=== PATIENT | male | born 1950 | race Hispanic/Latino ===

== ENCOUNTER 2021-09-07 18:25 | Emergency (ER) | payer BC, MEDICARE, SELFPAY ==
--- NOTE | ~2021-09-07 | XR_ITS ---
EXAMINATION: XR finger 1st LT min 2V EXAM DATE: 09/07/2021 19:13 INDICATION: strain, twisted injury, swollen, proximal base . TECHNIQUE: Left 1st finger frontal, lateral and oblique projections obtained and reviewed. There i s no prior study for comparison. FINDINGS: There is severe 1st carpometacarpal, moderate interphalangeal and mild to moderate metacarp ophalangeal primary osteoarthritis. There are no acute fractures or dislocations identified. There i s no subcutaneous gas. The soft tissue is unremarkable. There are no radiopaque foreign bodies. 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 Reviewed, dictated and finalized at location G.
--- NOTE | 2021-09-07 18:51 | ED.UPPEXIN ---
HPI - Extremity Injury (Upper) General Chief Complaint: Extremity Injury, Upper Stated Complaint: Swollen Thumb Time Seen by Provider: 09/07/21 18:51 Source: patient Mode of arrival: ambulatory Limitations: no limitations History of Present Illness HPI narrative: Bridget Cardenas is a 71 yo male with no PMH who hit his left thumb at work via twisting it. Started to swell and hurts on both sides pain is most at the proximal joint Related Data Allergies Allergy/AdvReac Type Severity Reaction Status Date / Time No Known Allergies Allergy Verified 12/29/19 14:28 Review of Systems Review of Systems: CONSTITUTIONAL: Denies fever, chills, sweats. EYES: Denies visual changes, redness, discharge. ENT: Denies rhinorrhea, congestion, sore throat, otalgia. CARDIOVASCULAR: Denies chest pain, palpitations, edema. RESPIRATORY: Denies dyspnea, wheezing, cough GASTROINTESTINAL: Denies abdominal pain, nausea, vomiting, diarrhea. GENITOURINARY: Denies dysuria, hematuria, abnormal discharge SKIN: Denies rash or itching. NEUROLOGIC: Denies numbness, or focal weakness. PSYCHIATRIC: Denies anxiety or depression. Left thumb pain and swelling PMFSH Past Medical History Medical History REM sleep behavior disorder Family History Family History Mother Diabetes mellitus Myocardial infarction Social History Social History (Updated 09/07/21 @ 18:57 by Amy Calhoun CNP) Smoking packs per day: 0.25 Smoking cigarettes per day: 5.0 Smoking status: Current every day smoker Tobacco type: cigarettes Alcohol intake: current Alcohol use details: Beer only Comments At time of signature, I agree with nursing past medical, surgical, social and family history. There is no relevant family history pertinent to the presenting complaint. Exam Narrative: GENERAL: This is a well-nourished, well-developed patient, in mild distress. HEAD: normocephalic, atraumatic. EYES: Sclera clear/white. Vision is grossly intact. EARS: External ears normal, . Hearing grossly intact. NOSE: External nose normal without nasal discharge, nares without redness, no rhinorrhea. THROAT: Mucous membranes moist, NECK: Neck supple, CARDIOVASCULAR: Regular rate and rhythm without murmurs, gallops, or rubs. RESPIRATORY: Clear to auscultation. Breath sounds equal bilaterally.hi. GASTROINTESTINAL: Abdomen soft, SKIN: warm, intact with no suspicious lesions or rash, good texture and turgor. NEURO: awake, alert, and oriented to person, place and time. There were no obvious focal neurologic abnormalities. Steady gait EXTREMITIES: Normal range of motion. Left thumb pain and swelling difficulty with movement states when it is squeezed it hurts like the dickens BACK: Nontender without deformity Course Course Emergency Course: Patient hurt finger also on by twisting it in some fashion X-ray of left thumb shows no subcutaneous gas no soft tissue changes there is no acute fracture dislocation identified. 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 Placed in thumb splint and given ibuprofen and patient is to ice thumb Vital Signs Vital signs: Vital Signs Temperature 98.0 F 09/07/21 19:09 Pulse Rate 69 09/07/21 19:09 Respiratory Rate 16 09/07/21 19:09 Blood Pressure 130/80 09/07/21 19:09 Pulse Oximetry 98 09/07/21 19:09 Temperature 98.0 F 09/07/21 19:09 Pulse Rate 69 09/07/21 19:09 Respiratory Rate 16 09/07/21 19:09 Blood Pressure 130/80 09/07/21 19:09 Pulse Oximetry 98 09/07/21 19:09 MDM - Extremity Injury (Upper) Differential Diagnosis Differential diagnosis: Likely finger sprain, dislocation of finger, fracture of hand and other (Tendon injury) Critical Care Time Critical Care Time Critical Care Time: No Disch
[2021-09-07 19:09] VITALS: BP 130/80; PULSE 69; RESP 16; TEMP 36.7; O2SAT 98
== END 2021-09-07 19:49 | disposition home or self-care (01) ==
PROVIDERS: Emergency Provider Nurse Practitioner; PCP Family Medicine
DX: M19.242 Secondary osteoarthritis, left hand (principal); F17.210 Nicotine dependence, cigarettes, uncomplicated; G47.52 REM sleep behavior disorder
CPT/HCPCS: 29130; 73140; 99213; G0463

== ENCOUNTER 2022-08-25 22:13 | Emergency (ER) | payer MEDICARE, SELFPAY ==
--- NOTE | ~2022-08-25 | XR_ITS ---
EXAMINATION: XR chest 2V 08/25/2022 23:22 INDICATION: Intermittent dizziness PROCEDURE: 2 view chest COMPARISON: 11/01/2008 FINDINGS: The lungs are clear. The cardiomediastinal silhouette is within normal limits. There are no pleural effusions. There is no pneumothorax suspected. IMPRESSION: 1: NO ACUTE CARDIOPULMONARY DISEASE. Reviewed, dictated and finalized at location A.
--- NOTE | ~2022-08-25 | CT_ITS ---
EXAMINATION: CT BRAIN W/O DATE: 08/26/2022 02:34 INDICATION: Intermittent dizziness for 3 days. TECHNIQUE: Computed tomography (CT) of the head was performed without intravenous contrast. The dose- length product was 605.33 mGy-cm. Automated exposure control and iterative reconstruction technique w ere employed. COMPARISON: No prior studies for comparison. FINDINGS: Normal brain parenchymal volume for age. Normal valdovinos-white differentiation. There are scatt ered mild periventricular and subcortical white matter changes, most likely related to small vessel i schemic disease (microangiopathy). No acute intracranial hemorrhage, infarction, mass or mass effect. No ventriculomegaly or midline shift. Midline sagittal images demonstrate a normal corpus callosum, c raniovertebral junction and sella turcica. Basilar cisterns are patent. Paranasal sinuses and mastoids are pneumatized. No depressed skull fractures. IMPRESSION: 1. No acute intracranial abnormality. Reviewed, dictated and finalized at location A.
[2022-08-25 22:20] VITALS: BP 120/69; PULSE 75; RESP 17; TEMP 36.6; O2SAT 99
--- NOTE | 2022-08-25 23:10 | PC.NURSE ---
Patient taken to xray via w/c.
[2022-08-26] VITALS (21 sets, daily range): BP systolic 117–150; BP diastolic 67–81; PULSE 60–77; RESP 13–23; O2SAT 95–100
--- NOTE | 2022-08-26 00:39 | ECG_ITS ---
Measurements Intervals [place] Rate: 64 P: 51 [place]: 157 QRS: 58 QRSD: 93 T: 49 QT: 370 QTc: 383 Interpretive Statements SINUS RHYTHM NORMAL ECG NO PREVIOUS ECG AVAILABLE FOR COMPARISON Electronically Signed On 08-26-2022 8:14:29 CDT by Juan Ballesteros D.O.
--- NOTE | 2022-08-26 00:44 | ED.GENADULT ---
HPI - General Adult General Chief complaint: Dizziness Stated complaint: coughing, choked on food earlier Time Seen by Provider: 08/26/22 00:33 History of Present Illness HPI narrative: Patient is 72-year-old gentleman who presents the emergency department with chief complaint of dizziness. Patient reports that today he choked on a cookie and his helped clear him. The patient states that afterwards lightheaded and felt somewhat unsteady on his feet. Patient states the little better now that he is arrived in the emergency department the patient denies chest pain denies shortness of breath denies abdominal pain. Patient denies weakness in his arms or legs Related Data Home Medications Medication Instructions Recorded Confirmed No Home Medications 08/25/22 08/25/22 Allergies Allergy/AdvReac Type Severity Reaction Status Date / Time No Known Allergies Allergy Verified 08/25/22 22:23 Review of Systems Review of Systems: A 10 system review of systems was completed on the patient and is negative except for what is stated in the HPI. Nursing and ancillary documentation was reviewed. [facility] Past Medical History Medical History REM sleep behavior disorder Family History Family History Mother Diabetes mellitus Myocardial infarction Social History Social History Smoking packs per day: 0.25 Smoking cigarettes per day: 5.0 Smoking status: Current every day smoker Tobacco type: cigarettes Alcohol intake: current Alcohol use details: Beer only Exam Narrative: GENERAL: Well-appearing, well-nourished, and in no acute distress. HEAD: Normocephalic, atraumatic. EYES: PERRLA and EOMI. ENT: Nares clear, no rhinorrhea or epistaxis. Mucous membranes moist. NECK: Supple. CHEST: Clear to auscultation. No respiratory distress. HEART: Regular rate and rhythm. No murmur heard. Normal peripheral pulses. ABDOMEN: Soft, nontender, nondistended, normal active bowel sounds. EXTREMITIES: Normal range of motion. No edema. SKIN: Warm, dry, no rash. NEURO: No focal deficits. Alert and oriented x3. PSYCH: Normal mood and affect. Course Vital Signs Vital signs: Vital Signs Temperature 36.6 C 08/25/22 22:20 Pulse Rate 75 08/25/22 22:20 Respiratory Rate 17 08/25/22 22:20 Blood Pressure 120/69 08/25/22 22:20 Pulse Oximetry 99 08/25/22 22:20 Oxygen Delivery Room Air 08/25/22 22:20 Temperature 36.6 C 08/25/22 22:20 Pulse Rate 60 08/26/22 03:45 Respiratory Rate 14 08/26/22 03:45 Blood Pressure 117/68 08/26/22 02:15 Pulse Oximetry 96 08/26/22 03:45 Oxygen Delivery Room Air 08/25/22 22:20 Medical Decision Making Vital Signs Vital Signs: Vital Signs Temperature 36.6 C 08/25/22 22:20 Pulse Rate 75 08/25/22 22:20 Respiratory Rate 17 08/25/22 22:20 Blood Pressure 120/69 08/25/22 22:20 Pulse Oximetry 99 08/25/22 22:20 Oxygen Delivery Room Air 08/25/22 22:20 Temperature 36.6 C 08/25/22 22:20 Pulse Rate 60 08/26/22 03:45 Respiratory Rate 14 08/26/22 03:45 Blood Pressure 117/68 08/26/22 02:15 Pulse Oximetry 96 08/26/22 03:45 Oxygen Delivery Room Air 08/25/22 22:20 Lab Data Result diagrams: 08/26/22 01:07 08/26/22 01:07 Labs: Lab Results 08/26/22 08/26/22 08/26/22 Range/Units 01:07 01:07 01:07 WBC 6.3 (4.5-10.0) K/mm3 RBC 4.34 L (4.6-6.20) M/mm3 Hgb 13.2 L (14.0-18.0) g/dL Hct 39.8 L (42.0-52.0) % MCV 91.7 (80-100) fl MCH 30.4 (26-34) pg MCHC 33.2 (32-36) g/dl RDW 13.8 (11.5-14.5) % Plt Count 134 L (150-375) k/mm3 MPV 9.7 (7.4-10.4) fl Immature Gran % (Auto) 0.3 (0-0.5) % Neut % (Auto) 43.6 L (45.5-73.1) % Lymph % (Auto) 40.2 (18.
[2022-08-26] MEDS: SODIUM CHLORIDE 0.9% IV 1,000 ML 999 ML IV CONT (01:05)
[2022-08-26 01:15] LABS: Basophils Percent Auto 0.5 % (0.2-1.2); Eosinophils Absolute Auto 0.3 K/mm3 (0-0.3); Eosinophils Percent Auto 5.4 % (0-4.4); Hematocrit 39.8 % (42.0-52.0); Hemoglobin 13.2 g/dL (14.0-18.0); Immature Granulocyte Absolute 0.02 K/mm3 (0.00-0.031); Immature Granulocyte Percent A 0.3 % (0-0.5); Immature Platelet Fraction Pct 2.5 % (0.9-11.2); Lymphocytes Absolute Auto 2.54 K/mm3 (0.9-3.2); Lymphocytes Percent Auto 40.2 % (18.3-44.2); Mean Corpuscular HGB Conc 33.2 g/dl (32-36); Mean Corpuscular Hemoglobin 30.4 pg (26-34); Mean Corpuscular Volume 91.7 fl (80-100); Mean Platelet Volume 9.7 fl (7.4-10.4); Monocytes Absolute Auto 0.6 K/mm3 (0.1-0.6); Neutrophils Absolute Auto 2.8 K/mm3 (1.3-6.7); Neutrophils Percent Auto 43.6 % (45.5-73.1); Platelet Count Result 134 k/mm3 (150-375); Red Blood Count 4.34 M/mm3 (4.6-6.20); Red Cell Distribution Width 13.8 % (11.5-14.5); White Blood Count 6.3 K/mm3 (4.5-10.0)
[2022-08-26 01:22] LABS: Lactic Acid Reflex 0.6 mmol/L (0.7-2.0)
[2022-08-26 01:23] LABS: Alanine Aminotransferase 12 U/L (6-50); Albumin Level 3.8 g/dL (3.5-5.1); Alkaline Phosphatase 102 U/L (38-126); Anion Gap 9 mmol/L (8-16); Aspartate Amino Transferase 19 U/L (17-59); Bilirubin,Total 0.4 mg/dL (0.2-1.3); Blood Urea Nitrogen 18 mg/dL (9-20); Calcium 8.7 mg/dL (8.4-10.2); Carbon Dioxide 26 mmol/L (22-30); Chloride 103 mmol/L (98-107); Estimated Glomerular Filt Rate > 60; Glucose 94 mg/dL (65-110); Magnesium 1.9 mg/dL (1.6-2.3); Potassium 3.6 mmol/L (3.4-5.0); Sodium 138 mmol/L (137-145)
[2022-08-26 01:34] LABS: Troponin I < 0.012 ng/mL (0.000-0.034)
[2022-08-26 02:21] LABS: Appearance Urine Clear (Clear); Bilirubin Urine Negative (Negative); Blood Urine Trace-lysed (Negative); Color Urine Yellow (Yellow); Glucose Urine UA Negative (Negative); Ketones Urine Negative (Negative); Leukocyte Esterase Ur 3+ LEU/UL (Negative); Nitrate Urine Negative (Negative); Protein Urine Negative (Negative); Specific Grav Ur 1.015 (1.001-1.035); Urobilinogen Urine 0.2 mg/dL (<2.0); pH Urine 5.5 (5.0-9.0)
[2022-08-26 02:26] LABS: Bacteria Urine Trace /hpf; Mucus Urine Heavy /lpf; Squamous Epithelial Cell Urine Rare /hpf (Few); WBC Urine >75 /hpf
[2022-08-26 02:27] LABS: Add Urine Microscopic? YES
[2022-08-26 03:52] LABS: Troponin I 0.018 ng/mL (0.000-0.034)
--- NOTE | 2022-08-26 04:07 | PC.NURSE ---
Walked pt around nurse's station. Steady gait. Dr Redding notified.
== END 2022-08-26 04:19 | disposition home or self-care (01) ==
PROVIDERS: Emergency Provider Emergency Medicine; PCP Family Medicine
DX: R42 Dizziness and giddiness (principal); G47.52 REM sleep behavior disorder; F17.210 Nicotine dependence, cigarettes, uncomplicated; R82.998 Other abnormal findings in urine
CPT/HCPCS: 36415; 70450; 71046; 80053; 81001; 83605; 83735; 84484; 85025; 85055; 87086; 93005; 96360; 99284; J7030

== ENCOUNTER 2023-07-15 08:26 | Emergency (ER) | payer MEDICARE, SELFPAY ==
[2023-07-15 08:49] VITALS: BP 110/72; PULSE 85; RESP 12; TEMP 36.2; O2SAT 98
--- NOTE | 2023-07-15 08:52 | ED.MALEGU ---
HPI - Male Genitourinary General Chief complaint: Urogenital-Male Stated complaint: Urinary Problems Source: patient and RN notes reviewed Mode of arrival: ambulatory Limitations: no limitations History of Present Illness HPI Narrative: 73-year-old male with no significant medical history presenting for complaint of burning with urination intermittently for 1 month. Reports increase in nocturia, waking about every 2 hours at night to urinate. Also reports frequency and urgency during the day. Denies abdominal pain, flank pain, hematuria, n/v/d/f/c. Does not drink much water. Smokes 1/2ppd. Related Data Allergies Allergy/AdvReac Type Severity Reaction Status Date / Time No Known Allergies Allergy Verified 07/15/23 08:28 Review of Systems Review of Systems: CONSTITUTIONAL: Denies body aches, fever, chills, or sweats. CARDIOVASCULAR: Denies chest pain, palpitations, or edema. RESPIRATORY: Denies cough or dyspnea. GASTROINTESTINAL: Denies abdominal pain, nausea, vomiting, or diarrhea. GENITOURINARY: Reports dysuria, frequency, urgency, denies hematuria, flank pain SKIN: Denies rash, itching, or wounds. MUSCULOSKELETAL: Denies back pain or myalgia. [facility] Past Medical History Medical History REM sleep behavior disorder Family History Family History Mother Diabetes mellitus Myocardial infarction Social History Social History Smoking packs per day: 0.25 Smoking cigarettes per day: 5.0 Smoking status: Current every day smoker Tobacco type: cigarettes Alcohol intake: current Alcohol use details: Beer only Comments At time of signature, I have reviewed and agree with nursing past medical, surgical, social and family history unless otherwise noted. Please see nursing chart for further information. There is no relevant family history pertinent to the presenting complaint Exam Narrative: GENERAL: Well-appearing and in no acute distress. HEAD: Normocephalic EYES: EOMI. . ENT: Mucous membranes pink and moist. NECK: Normal AROM. Supple. CHEST: No respiratory distress. Clear to auscultation. HEART: Regular rate and rhythm. ABDOMEN: Soft, nontender, nondistended, normal active bowel sounds. No CVA tenderness SKIN: Warm, dry, no rash. NEURO: No focal deficits. Alert and oriented x3. Gait steady. PSYCH: Normal affect. Course Course Emergency Course: Patient is aware of diagnosis, understands and agrees to treatment plan. Anticipatory guidance given. Patient agrees to follow-up as directed and is aware of reasons to seek care at the emergency department. Portions of this record may have been created with voice recognition software Level of Care: Express Care Visit Vital Signs Vital signs: Vital Signs Temperature 97.1 F L 07/15/23 08:49 Pulse Rate 85 07/15/23 08:49 Respiratory Rate 12 07/15/23 08:49 Blood Pressure 110/72 07/15/23 08:49 Pulse Oximetry 98 07/15/23 08:49 Oxygen Delivery Room Air 07/15/23 08:49 Temperature 97.1 F L 07/15/23 08:49 Pulse Rate 85 07/15/23 08:49 Respiratory Rate 12 07/15/23 08:49 Blood Pressure 110/72 07/15/23 08:49 Pulse Oximetry 98 07/15/23 08:49 Oxygen Delivery Room Air 07/15/23 08:49 Reviewed MDM - Male Genitourinary MDM Narrative Medical decision making narrative: Discussed physical exam findings and reviewed urine dip. Pt is well appearing, A&Ox3, afebrile. Will start abx. Advised supportive measures and signs/symptoms to go to the ER. Pt is appropriate for outpt treatment and f/u. Advised to contact pcp today to schedule f/u. v/u Differential Diagnosis Differential diagnosis: Likely urinary tract infection, urethritis, prostatitis and inguinal hernia Discharge Plan Discharge Clinical Impression: Urinary tract infection
== END 2023-07-15 09:30 | disposition home or self-care (01) ==
PROVIDERS: Emergency Provider Nurse Practitioner Family; PCP Family Medicine
DX: N39.0 Urinary tract infection, site not specified (principal); F17.210 Nicotine dependence, cigarettes, uncomplicated
CPT/HCPCS: 81003; 87086; 99213; G0463

== ENCOUNTER 2023-11-01 20:35 | Emergency (ER) | payer MEDICARE, SELFPAY ==
[2023-11-01 20:41] VITALS: BP 135/83; PULSE 79; RESP 20; TEMP 36.2; O2SAT 96
--- NOTE | 2023-11-01 22:16 | ED.GENADULT ---
[facility] - General Adult General Chief complaint: Urogenital-Male Stated complaint: burning with urination Time Seen by Provider: 11/01/23 21:39 Source: patient Mode of arrival: ambulatory Limitations: no limitations History of Present Illness HPI narrative: This is a 73-year-old male who presents to the ED with chief complaint of verbal dysuria x1 week. Reports and burning with urination. Reports some blood noted with urination as well. Denies flank pain, fevers, chills, nausea, vomiting. Related Data Allergies Allergy/AdvReac Type Severity Reaction Status Date / Time No Known Allergies Allergy Verified 11/01/23 20:35 Review of Systems Review of Systems: All systems as dictated in [facility] Past Medical History Medical History REM sleep behavior disorder Family History Family History Mother Diabetes mellitus Myocardial infarction Social History Social History Smoking packs per day: 0.25 Smoking cigarettes per day: 5.0 Smoking status: Current every day smoker Tobacco type: cigarettes Alcohol intake: current Alcohol use details: Beer only Exam Narrative: GENERAL: Well-appearing, well-nourished, and in no acute distress. HEAD: Normocephalic, atraumatic. EYES: PERRLA and EOMI. ENT: Nares clear, no rhinorrhea or epistaxis. Mucous membranes moist. Oropharynx without tonsillar hypertrophy exudate or other lesions. NECK: Supple. No adenopathy or masses. CHEST: No respiratory distress. Clear to auscultation. No wheezes rales or rhonchi HEART: Regular rate and rhythm. No murmur heard. Normal peripheral pulses. ABDOMEN: Soft, nontender, nondistended, normal active bowel sounds. Negative flank tenderness bilaterally. MSK: Normal range of motion. No edema. SKIN: Warm, dry, no rash. NEURO: Alert and oriented x3. No focal deficits. PSYCH: Normal mood and affect. Course Vital Signs Vital signs: Vital Signs Temperature 97.2 F L 11/01/23 20:41 Pulse Rate 79 11/01/23 20:41 Respiratory Rate 20 11/01/23 20:41 Blood Pressure 135/83 12/01/23 20:41 Pulse Oximetry 96 11/01/23 20:41 Oxygen Delivery Room Air 11/01/23 20:41 Temperature 97.2 F L 11/01/23 20:41 Pulse Rate 76 11/01/23 22:43 Respiratory Rate 18 11/01/23 22:43 Blood Pressure 120/65 11/01/23 22:43 Pulse Oximetry 97 11/01/23 22:43 Oxygen Delivery Room Air 11/01/23 20:41 Medical Decision Making MDM Narrative Medical decision making narrative: This is a 73-year-old male who presents to the ED with chief complaint of urinary burning as well as hematuria for the past week. Vitals are normal. Exam is benign. No evidence of acute abdomen flank pain. Blood work largely unremarkable but he does have slightly elevated BUN. Urinalysis shows 4+ protein, 3+ blood, 1+ leuk esterase, greater than 100 white blood cells, 4+ bacteria. His no flank pain or tenderness to suggest a stone. We will treat the uTI and given instructions to follow-up with PCP. Urology referral given as well. Pt will be discharged in stable condition. Return precautions given and supportive measures discussed. Pt is understanding and agreeable with plan for discharge and follow-up with PCP. Vital Signs Vital Signs: Vital Signs Temperature 97.2 F L 11/01/23 20:41 Pulse Rate 79 11/01/23 20:41 Respiratory Rate 20 11/01/23 20:41 Blood Pressure 135/83 11/01/23 20:41 Pulse Oximetry 96 11/01/23 20:41 Oxygen Delivery Room Air 11/01/23 20:41 Temperature 97.2 F L 11/01/23 20:41 Pulse Rate 76 11/01/23 22:43 Respiratory Rate 18 11/01/23 22:43 Blood Pressure 120/65 11/01/23 22:43 Pulse Oximetry 97 11/01/23 22:43 Oxygen Delivery Room Air 11/01/23 20:41 Lab Data 11/01/23 23:09 11/01/23 23:09 Labs:
[2023-11-01 22:42] LABS: Appearance Urine Turbid (Clear); Bacteria Urine 4+ /hpf; Bilirubin Urine Negative (Negative); Blood Urine 3+ (Negative); Color Urine Dark Yellow (Yellow); Glucose Urine UA Negative (Negative); Ketones Urine Trace mg/dL (Negative); Leukocyte Esterase Ur 1+ LEU/UL (Negative); Need Manual Microscopic Reviewed; Nitrate Urine Negative (Negative); Protein Urine 4+ mg/dL (Negative); RBC Urine >100 /hpf (0-2); Specific Grav Ur 1.023 (1.001-1.035); Squamous Epithelial Cell Urine Few /hpf (Few); WBC Urine >100 /hpf; pH Urine 7.5 (5.0-9.0)
[2023-11-01 22:43] VITALS: BP 120/65; PULSE 76; RESP 18; O2SAT 97
[2023-11-01 22:56] LABS: Add Urine Microscopic? YES
[2023-11-01] MEDS: CEPHALEXIN 500 MG CAPSULE PO (23:12)
[2023-11-01 23:15] LABS: Basophils Absolute Auto 0.1 K/mm3 (0.0-0.1); Basophils Percent Auto 0.5 % (0.2-1.2); Eosinophils Absolute Auto 0.3 K/mm3 (0-0.3); Eosinophils Percent Auto 2.6 % (0-4.4); Hematocrit 39.4 % (42.0-52.0); Hemoglobin 12.8 g/dL (14.0-18.0); Immature Granulocyte Absolute 0.02 K/mm3 (0.00-0.031); Immature Granulocyte Percent A 0.2 % (0-0.5); Lymphocytes Absolute Auto 5.55 K/mm3 (0.9-3.2); Lymphocytes Percent Auto 54.5 % (18.3-44.2); Mean Corpuscular HGB Conc 32.5 g/dl (32-36); Mean Corpuscular Volume 86.2 fl (80-100); Mean Platelet Volume 9.5 fl (7.4-10.4); Monocytes Absolute Auto 0.8 K/mm3 (0.1-0.6); Neutrophils Absolute Auto 3.5 K/mm3 (1.3-6.7); Neutrophils Percent Auto 34.2 % (45.5-73.1); Platelet Count Result 129 k/mm3 (150-375); Red Blood Count 4.57 M/mm3 (4.6-6.20); Red Cell Distribution Width 14.1 % (11.5-14.5); White Blood Count 10.2 K/mm3 (4.5-10.0)
[2023-11-01 23:51] LABS: Alanine Aminotransferase 17 U/L (6-50); Albumin Level 3.5 g/dL (3.5-5.1); Alkaline Phosphatase 112 U/L (38-126); Anion Gap 7 mmol/L (8-16); Aspartate Amino Transferase 32 U/L (17-59); Bilirubin,Total 0.5 mg/dL (0.2-1.3); Blood Urea Nitrogen 30 mg/dL (9-20); Calcium 8.6 mg/dL (8.4-10.2); Carbon Dioxide 25 mmol/L (22-30); Chloride 106 mmol/L (98-107); Estimated CRCL calculation 47 ml/min; Estimated Glomerular Filt Rate > 60; Glucose 100 mg/dL (65-110); Potassium 3.6 mmol/L (3.4-5.0); Sodium 138 mmol/L (137-145)
== END 2023-11-02 00:15 | disposition home or self-care (01) ==
PROVIDERS: Emergency Provider Physician Assistant; PCP Family Medicine
DX: N39.0 Urinary tract infection, site not specified (principal); F17.210 Nicotine dependence, cigarettes, uncomplicated
CPT/HCPCS: 36415; 80053; 81001; 85025; 87086; 87088; 99283; A9270

== ENCOUNTER 2024-01-18 10:33 | Emergency (ER) | payer MEDICARE, OTHER, SELFPAY ==
[2024-01-18] VITALS (7 sets, daily range): BP systolic 110–147; BP diastolic 64–78; PULSE 56–76; RESP 14–19; TEMP 36.3–36.8; O2SAT 96–100
--- NOTE | ~2024-01-18 | XR_ITS ---
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 RESULT: Lines, tubes, and devices: None. Lungs and pleura: Clear. Cardiomediastinal silhouette: Stable. Other: No acute osseous or upper abdominal finding. IMPRESSION: No acute cardiopulmonary process. Reviewed, dictated and finalized at location K. [employer]ICAL SYSTEMS CONTROL ENGINEER
--- NOTE | 2024-01-18 10:42 | ECG_ITS ---
Measurements Intervals [place] Rate: 59 P: 59 [place]: 154 QRS: 53 QRSD: 90 T: 42 QT: 378 QTc: 377 Interpretive Statements SINUS BRADYCARDIA OTHERWISE NORMAL ECG COMPARED TO ECG 08/26/2022 00:55:40 HEART RATE DECREASED Electronically Signed On 01-18-2024 19:13:13 CERTIFIED NUTRITIONIST by Ion Boyce M.D.
[2024-01-18 10:58] LABS: Basophils Percent Auto 0.4 % (0.2-1.2); Eosinophils Absolute Auto 0.1 K/mm3 (0-0.3); Eosinophils Percent Auto 1.2 % (0-4.4); Hematocrit 44.2 % (42.0-52.0); Immature Granulocyte Absolute 0.02 K/mm3 (0.00-0.031); Immature Granulocyte Percent A 0.2 % (0-0.5); Immature Platelet Fraction Pct 2.6 % (0.9-11.2); Lymphocytes Absolute Auto 4.07 K/mm3 (0.9-3.2); Lymphocytes Percent Auto 47.5 % (18.3-44.2); Mean Corpuscular HGB Conc 31.7 g/dl (32-36); Mean Corpuscular Hemoglobin 28.6 pg (26-34); Mean Corpuscular Volume 90.2 fl (80-100); Mean Platelet Volume 9.7 fl (7.4-10.4); Monocytes Absolute Auto 0.7 K/mm3 (0.1-0.6); Monocytes Percent Auto 8.3 % (2.6-8.5); Neutrophils Absolute Auto 3.6 K/mm3 (1.3-6.7); Neutrophils Percent Auto 42.4 % (45.5-73.1); Platelet Count Result 112 k/mm3 (150-375); Red Cell Distribution Width 14.6 % (11.5-14.5); White Blood Count 8.6 K/mm3 (4.5-10.0)
[2024-01-18 11:04] LABS: Alanine Aminotransferase 12 U/L (6-50); Albumin Level 4.1 g/dL (3.5-5.1); Alkaline Phosphatase 117 U/L (38-126); Anion Gap 3 mmol/L (8-16); Aspartate Amino Transferase 25 U/L (17-59); Bilirubin,Total 0.6 mg/dL (0.2-1.3); Blood Urea Nitrogen 17 mg/dL (9-20); Calcium 9.1 mg/dL (8.4-10.2); Carbon Dioxide 31 mmol/L (22-30); Chloride 106 mmol/L (98-107); Estimated CRCL calculation 60 ml/min; Estimated Glomerular Filt Rate > 60; Glucose 94 mg/dL (65-110); Potassium 4.1 mmol/L (3.4-5.0); Sodium 140 mmol/L (137-145)
--- NOTE | 2024-01-18 16:50 | ED.DIZZY ---
HPI - Dizziness General Chief Complaint: Syncope Stated Complaint: Dizzy, Syncopal Episode Yesterday Time Seen by Provider: 01/18/24 15:25 History of Present Illness HPI Narrative: Patient is a 73-year-old male who presents to the emergency department this afternoon for evaluation after syncopal episode that occurred at work yesterday. Patient states that he was working and felt slightly lightheaded. Patient dozed off for a 2nd and then fell forward hitting his left knee on the ground. The impact woke him up and he was able to catch himself with his. He denies hitting his head and states that he thinks that he passed out for 1-2 seconds. Patient denies any past medical history and does not take any medications. Patient admits that yesterday he did not have anything to drink in the morning prior to going to work and thinks that that may have something to do with his syncopal episode. He denies any previous syncopal episodes in the past. Patient also states that he gave up and nicotine on Saturday for lent and has not had any nicotine since. He is currently denying any symptoms including chest pain, shortness of breath, nausea, vomiting, abdominal pain, dysuria, hematuria, constipation, diarrhea, melena, hematochezia, fevers or chills. Patient also denies any headaches, dizziness, lightheadedness, blurry visions, focal weakness, numbness and or tingling. There are no other modifying, alleviating, or precipitating factors at this time. Related Data Allergies Allergy/AdvReac Type Severity Reaction Status Date / Time No Known Allergies Allergy Verified 01/18/24 15:22 Review of Systems Review of Systems: All systems are reviewed and are negative unless stated otherwise in the HPI. [facility] Past Medical History Medical History REM sleep behavior disorder Family History Family History Mother Diabetes mellitus Myocardial infarction Social History Social History Smoking packs per day: 0.25 Smoking cigarettes per day: 5.0 Smoking status: Current every day smoker Tobacco type: cigarettes Alcohol intake: current Alcohol use details: Beer only Comments Past medical history is negative, past surgical history include rotator cuff repair and facial bone fracture in high school which required surgical repair. Patient recently quit smoking 3 days ago. Denies any alcohol abuse or illicit drug use. Exam Narrative: General: Alert, awake, afebrile, in no acute distress. HEENT: PERRL, no rhinorrhea, no post nasal drip, oropharynx clear. Neck: Trachea midline, no JVD, no lymphadenopathy. Cardiovascular: Regular rate and rhythm, no murmurs, rubs or gallops, no peripheral edema. Respiratory: Clear to auscultation bilaterally, no tachypnea, no wheezing, no rhonchi, no rubs, no respiratory distress. Abdomen: Soft, nontender, nondistended, no rebound, no guarding, no peritoneal signs. Musculoskeletal: No joint swelling or deformity, normal muscle tone. Skin: No rashes or petechia, no signs of infection. Psychiatric: Alert and oriented, normal behavior and judgment for situation. Neurological: Alert and oriented to person, place, and time. Follows all commands. No focal deficits, speech is clear and fluent. Course Vital Signs Vital signs: Vital Signs Temperature 97.6 F 01/18/24 10:37 Pulse Rate 56 L 01/18/24 10:37 Respiratory Rate 18 01/18/24 10:37 Blood Pressure 144/64 H 01/18/24 10:37 Pulse Oximetry 100 01/18/24 10:37 Oxygen Delivery Room Air 01/18/24 10:37 Temperature 98.3 F 01/18/24 15:21 Pulse Rate 63 01/18/24 17:03 Respiratory Rate 14 01/18/24 17:03 Blood Pressure 117/77 01/18/24 17:03 Pulse Oximetry 96 01/18/24 17:03 Oxygen Delivery Room Air 01/18/24 10:37 MDM - Dizziness MDM Narrative Medical decisi
[2024-01-18 17:18] LABS: Troponin I < 0.012 ng/mL (0.000-0.034)
[2024-01-18 17:21] LABS: Influenza A QL RT-PCR Negative (Negative); Influenza B QL RT-PCR Negative (Negative); RSV RNA, RT-PCR Negative (Negative); SARS-CoV-2 RNA PCR Negative (Negative)
== END 2024-01-18 18:03 | disposition home or self-care (01) ==
PROVIDERS: Emergency Provider Emergency Medicine; PCP Family Medicine
DX: R55 Syncope and collapse (principal); Z20.822 Contact with and (suspected) exposure to COVID-19; G47.52 REM sleep behavior disorder; F17.210 Nicotine dependence, cigarettes, uncomplicated
CPT/HCPCS: 36415; 71045; 80053; 84484; 85025; 85055; 87637; 93005; 99284